=== PATIENT | female | born 1945 | race Caucasian/White ===

== ENCOUNTER 2019-08-08 18:05 | Inpatient (IN) ==
--- NOTE | 2019-08-08 19:42 | DR.EXTPAIN ---
HPI Time seen Time Seen by Provider: 08/08/19 19:41 PCP Primary Care Physician: paul ledesma Complaint/Symptoms Chief Complaint:: pt stated both her legs has started swelling for the last couple of weeks. pt stated she has not seen her family doctor in a long time. patient stated they have been in [place] for 30 years and has been trying to get home. pt stated she seen her doctor about 2 years ago. 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 Past Surgical History Comment: right surgery Family History History of Family Medical Conditions: No Social History Does patient currently use any type of tobacco product: No Have you used tobacco products in the last 12 months: No Type of Tobacco Use: None Does any household member use tobacco: No Alcohol Use: None Do you use any recreational Drugs:: No Lives With: Family Lives Where: Home infectious screening In the last 2 months have you had wt loss of >10#?: NO Have you had fever, night sweats or hemotysis?: No Have you traveled outside the country in the last 6 months?: No Isolation: Standard PE Vital Signs Vitals: Temperature 98.9 F Pulse Rate 88 Respiratory Rate 16 O2 Sat by Pulse Oximetry 99 ROR Labs Reviewed Result Diagrams: 08/08/19 19:45 08/08/19 19:45 Laboratory: 08/08/19 20:30 Leg - Left Gram Stain - Final WBC 9.8 X10^3/uL (3.6-10.0) 08/08/19 19:45 RBC 3.65 X10^6/uL (3.5-5.4) 08/08/19 19:45 Hgb 11.0 g/dL (12.0-16.0) L 08/08/19 19:45 Hct 32.7 % (36.0-47.0) L 08/08/19 19:45 MCV 89.6 fL (80.0-100.0) 08/08/19 19:45 MCH 30.3 pg (27.0-34.0) 08/08/19 19:45 MCHC 33.8 g/dL (33.0-35.0) 08/08/19 19:45 RDW 14.9 % (11.6-16.5) 08/08/19 19:45 Plt Count 368 X10^3/uL (150.0-450.0) 08/08/19 19:45 MPV 6.8 fL (7.4-11.0) L 08/08/19 19:45 Neut % (Auto) 72.2 % (42.0-75.0) 08/08/19 19:45 Lymph % (Auto) 14.5 % (21.0-51.0) L 08/08/19 19:45 [place] % (Auto) 7.4 % (0.0-13.0) 08/08/19 19:45 Eos % (Auto) 5.1 % (0.9-2.9) H 08/08/19 19:45 Baso % (Auto) 0.8 % (0.2-1.0) 08/08/19 19:45 Neut # (Auto) 7.0 x10^3/uL (2.2-4.8) H 08/08/19 19:45 Lymph # (Auto) 1.4 X10^3/uL (1.3-2.9) 08/08/19 19:45 [place] # (Auto) 0.7 x10^3/uL (0.3-0.8) 08/08/19 19:45 Eos # (Auto) 0.5 x10^3/uL (0.0-0.2) H 08/08/19 19:45 Baso # (Auto) 0.1 X10^3/uL (0.0-0.1) 08/08/19 19:45 Absolute Nucleated RBC 0.0 /100WBC 08/08/19 19:45 Sodium 140 mmol/L (136-145) 08/08/19 19:45 Corrected Sodium TNP 08/08/19 19:45 Potassium 3.7 mmol/L (3.5-5.1) 08/08/19 19:45 Chloride 105 mmol/L (98-107) 08/08/19 19:45 Carbon Dioxide 21.2 mmol/L (21-32) 08/08/19 19:45 BUN 20 mg/dL (7-18) H 08/08/19 19:45 Creatinine 1.71 mg/dL (0.55-1.02) H 08/08/19 19:45 Est GFR (MDRD) Af Amer 38 (>60) L 08/08/19 19:45 Est GFR (MDRD) Non-Af 31 (>60) L 08/08/19 19:45 Glucose 104 mg/dL (65-99) H 08/08/19 19:45 Lactic Acid 1.6 mmol/L (0.4-2.0) 08/08/19 20:16 Calcium 8.6 mg/dL (8.5-10.1) 08/08/19 19:45 Corrected Calcium TNP 08/08/19 19:45 Total Bilirubin 0.20 mg/dL (0.2-1.0) 08/08/19 19:45 AST 17 Units/L (15-37) 08/08/19 19:45 ALT 20 Units/L (12-78) 08/08/19 19:45 Alkaline Phosphatase 107 Units/L (46-116) 08/08/19 19:45 C-Reactive Protein 15.10 mg/L (0-3.0) H 08/08/19 19:45 Total Protein 8.4 g/dL (6.4-8.2) H 08/08/19 19:45 Albumin 3.9 g/dL (3.4-5.0) 08/08/19 19:45 Globulin 4.5 g/dL (2.5-4.5) 08/08/19 19:45 Albumin/Globulin Ratio 0.9 Ratio (1.1-2.1) L 08/08/19 19:45 Opioid Opioid Risk Tool Total: 0 Total Score Risk Category: Low Risk Copyright: Aly MISHRA predicting aberrant behaviors Instructions Forms: Excuse From Work
[2019-08-08] MEDS ORDERED: CATAPRES TAB 0.2 MG PO ONE (19:54)
[2019-08-08] MEDS ORDERED: CATAPRES TAB 0.2 MG ONE (19:58)
[2019-08-08 20:02] LABS: BASOPHILS # (AUTO) 0.1 X10^3/uL (0.0-0.1); BASOPHILS % (AUTO) 0.8 % (0.2-1.0); EOSINOPHILS # (AUTO) 0.5 x10^3/uL (0.0-0.2); EOSINOPHILS % (AUTO) 5.1 % (0.9-2.9); HEMATOCRIT 32.7 % (36.0-47.0); LYMPHOCYTES # (AUTO) 1.4 X10^3/uL (1.3-2.9); LYMPHOCYTES % (AUTO) 14.5 % (21.0-51.0); MEAN CORPUSCULAR HEMOGLOBIN 30.3 pg (27.0-34.0); MEAN CORPUSCULAR HGB CONC 33.8 g/dL (33.0-35.0); MEAN CORPUSCULAR VOLUME 89.6 fL (80.0-100.0); MEAN PLATELET VOLUME 6.8 fL (7.4-11.0); MONOCYTES # (AUTO) 0.7 x10^3/uL (0.3-0.8); MONOCYTES % (AUTO) 7.4 % (0.0-13.0); NEUTROPHILS % (AUTO) 72.2 % (42.0-75.0); PLATELET COUNT 368 X10^3/uL (150.0-450.0); RED BLOOD COUNT 3.65 X10^6/uL (3.5-5.4); RED CELL DISTRIBUTION WIDTH 14.9 % (11.6-16.5); WHITE BLOOD COUNT 9.8 X10^3/uL (3.6-10.0)
[2019-08-08] MEDS: NS 1000 ML 1,000 ML IV SCH (20:04)
[2019-08-08 20:13] LABS: ALANINE AMINOTRANSFERASE 20 Units/L (12-78); ALBUMIN 3.9 g/dL (3.4-5.0); ALKALINE PHOSPHATASE 107 Units/L (46-116); ASPARTATE AMINO TRANSFERASE 17 Units/L (15-37); BLOOD UREA NITROGEN 20 mg/dL (7-18); CALCIUM 8.6 mg/dL (8.5-10.1); CARBON DIOXIDE 21.2 mmol/L (21-32); CHLORIDE 105 mmol/L (98-107); CREATININE 1.71 mg/dL (0.55-1.02); SODIUM 140 mmol/L (136-145); TOTAL PROTEIN 8.4 g/dL (6.4-8.2); eGFR NON BLACK RACES 31 (>60)
[2019-08-08] MEDS ORDERED: VANCOMYCIN HCL 1 G in D5W 250 ML IV 250 ML IV ONE (21:45)
[2019-08-08] MEDS ORDERED: VANCOMYCIN HCL ONE (22:14)
[2019-08-08] MEDS ORDERED: NS 250 ML IV 250 ML IV ONE (22:14)
[2019-08-08] MEDS ORDERED: ZOFRAN TAB 4 MG PO PRN (22:57)
[2019-08-08] MEDS ORDERED: PHARMACY CONSULT - VANCOMYCIN XX SCH (23:00)
[2019-08-09 01:20] LABS: BILIRUBIN,URINE NEGATIVE (NEGATIVE); BLOOD/HEMOGLOBIN,URINE 2+ (NEGATIVE); GLUCOSE, URINE NEGATIVE (NEGATIVE); KETONES,URINE NEGATIVE (NEGATIVE); LEUKOCYTE ESTERASE ,URINE 1+ (NEGATIVE); NITRITES,URINE NEGATIVE (NEGATIVE); PROTEIN,URINE 3+ (NEGATIVE); UROBILINOGEN,URINE NORMAL (NORMAL)
[2019-08-09 01:28] LABS: APPEARANCE,URINE CLEAR (CLEAR); COLOR,URINE YELLOW (YELLOW)
[2019-08-09 01:29] LABS: BACTERIA,URINE TRACE /HPF (NEGATIVE); SQUAMOUS EPITHELIAL CELL,UR RARE /HPF (NEGATIVE)
[2019-08-09 04:04] VITALS: BMI 26.3
[2019-08-09 05:21] LABS: BASOPHILS # (AUTO) 0.1 X10^3/uL (0.0-0.1); BASOPHILS % (AUTO) 1.2 % (0.2-1.0); EOSINOPHILS # (AUTO) 0.4 x10^3/uL (0.0-0.2); EOSINOPHILS % (AUTO) 4.9 % (0.9-2.9); HEMATOCRIT 27.6 % (36.0-47.0); HEMOGLOBIN 9.4 g/dL (12.0-16.0); LYMPHOCYTES % (AUTO) 12.7 % (21.0-51.0); MEAN CORPUSCULAR HEMOGLOBIN 30.7 pg (27.0-34.0); MEAN CORPUSCULAR HGB CONC 34.3 g/dL (33.0-35.0); MEAN CORPUSCULAR VOLUME 89.5 fL (80.0-100.0); MEAN PLATELET VOLUME 6.9 fL (7.4-11.0); MONOCYTES # (AUTO) 0.6 x10^3/uL (0.3-0.8); MONOCYTES % (AUTO) 7.8 % (0.0-13.0); NEUTROPHILS # (AUTO) 5.7 x10^3/uL (2.2-4.8); NEUTROPHILS % (AUTO) 73.4 % (42.0-75.0); PLATELET COUNT 313 X10^3/uL (150.0-450.0); RED BLOOD COUNT 3.08 X10^6/uL (3.5-5.4); WHITE BLOOD COUNT 7.8 X10^3/uL (3.6-10.0)
[2019-08-09 05:23] LABS: ALBUMIN 2.8 g/dL (3.4-5.0); CALCIUM 7.5 mg/dL (8.5-10.1); CARBON DIOXIDE 21.6 mmol/L (21-32); COR CA(FOR HYPOALB) 8.5 mg/dL (8.5-10.1); CREATININE 1.54 mg/dL (0.55-1.02); TOTAL PROTEIN 6.3 g/dL (6.4-8.2)
[2019-08-09] MEDS: NS 1000 ML 1,000 ML IV SCH ×4 (06:21→20:41)
--- NOTE | 2019-08-09 12:19 | DR.H&P ---
H&P History & Physical for Day of: H&P Date: 08/09/19 Chief Complaint Chief Complaint: Legs swelling and redness Allergies Allergies Allergy/AdvReac Type Severity Reaction Status Date / Time No Known Drug Allergies Allergy Verified 08/08/19 18:30 History of Present Illness History of Present Illness: Pt presenting after having increased redness and swelling in bilateral lower extremities. She admits to not seeing a physician in a long time. She denies any fevers and reports gradual worsening over the past few months. Past Medical History Past Medical History: Hypertension Past Surgical History Surgical History: Other Family History Family Medical History: Cancer and Hypertension Social History Does patient currently use any type of tobacco product: No Have you used tobacco products in the last 12 months: No Type of Tobacco Use: None Does any household member use tobacco: No Alcohol Use: None Drug Use: None Medications Home Medications: No Known Drug Allergies Allergy (Verified 08/08/19 18:30) CONTINUE taking the following medications aspirin [Aspirin Low Dose] 81 mg PO DAILY 08/09/19 [History] ibuprofen 400 mg PO BID 08/09/19 [History] Labs Result Diagrams: 08/09/19 04:58 08/09/19 04:58 Labs: 08/08/19 20:30 Leg - Left Gram Stain - Final 08/08/19 20:30 Leg - Left Wound Culture - Preliminary Laboratory WBC 7.8 X10^3/uL (3.6-10.0) 08/09/19 04:58 RBC 3.08 X10^6/uL (3.5-5.4) L 08/09/19 04:58 Hgb 9.4 g/dL (12.0-16.0) L 08/09/19 04:58 Hct 27.6 % (36.0-47.0) L 08/09/19 04:58 MCV 89.5 fL (80.0-100.0) 08/09/19 04:58 MCH 30.7 pg (27.0-34.0) 08/09/19 04:58 MCHC 34.3 g/dL (33.0-35.0) 08/09/19 04:58 RDW 15.0 % (11.6-16.5) 08/09/19 04:58 Plt Count 313 X10^3/uL (150.0-450.0) 08/09/19 04:58 MPV 6.9 fL (7.4-11.0) L 08/09/19 04:58 Neut % (Auto) 73.4 % (42.0-75.0) 08/09/19 04:58 Lymph % (Auto) 12.7 % (21.0-51.0) L 08/09/19 04:58 [place] % (Auto) 7.8 % (0.0-13.0) 08/09/19 04:58 Eos % (Auto) 4.9 % (0.9-2.9) H 08/09/19 04:58 Baso % (Auto) 1.2 % (0.2-1.0) H 08/09/19 04:58 Neut # (Auto) 5.7 x10^3/uL (2.2-4.8) H 08/09/19 04:58 Lymph # (Auto) 1.0 X10^3/uL (1.3-2.9) L 08/09/19 04:58 [place] # (Auto) 0.6 x10^3/uL (0.3-0.8) 08/09/19 04:58 Eos # (Auto) 0.4 x10^3/uL (0.0-0.2) H 08/09/19 04:58 Baso # (Auto) 0.1 X10^3/uL (0.0-0.1) 08/09/19 04:58 Absolute Nucleated RBC 0.0 /100WBC 08/09/19 04:58 Sodium 141 mmol/L (136-145) 08/09/19 04:58 Corrected Sodium 142 mmol/L (136-145) 08/09/19 04:58 Potassium 3.4 mmol/L (3.5-5.1) L 08/09/19 04:58 Chloride 108 mmol/L (98-107) H 08/09/19 04:58 Carbon Dioxide 21.6 mmol/L (21-32) 08/09/19 04:58 BUN 18 mg/dL (7-18) 08/09/19 04:58 Creatinine 1.54 mg/dL (0.55-1.02) H 08/09/19 04:58 Est GFR (MDRD) Af Amer 42 (>60) L 08/09/19 04:58 Est GFR (MDRD) Non-Af 35 (>60) L 08/09/19 04:58 Glucose 133 mg/dL (65-99) H 08/09/19 04:58 Lactic Acid 1.6 mmol/L (0.4-2.0) 08/08/19 20:16 Calcium 7.5 mg/dL (8.5-10.1) L 08/09/19 04:58 Corrected Calcium 8.5 mg/dL (8.5-10.1) 08/09/19 04:58 Total Bilirubin 0.20 mg/dL (0.2-1.0) 08/09/19 04:58 AST 12 Units/L (15-37) L 08/09/19 04:58 ALT 16 Units/L (12-78) 08/09/19 04:58 Alkaline Phosphatase 83 Units/L (46-116) 08/09/19 04:58 C-Reactive Protein 15.10 mg/L (0-3.0) H 08/08/19 19:45 Total Protein 6.3 g/dL (6.4-8.2) L 08/09/19 04:58 Albumin 2.8 g/dL (3.4-5.0) L 08/09/19 04:58 Globulin 3.5 g/dL (2.5-4.5) 08/09/19 04:58 Albumin/Globulin Ratio 0.8 Ratio (1.1-2.1) L 08/09/19 04:58 Specimen Type Clean catch urine 08/08/19 23:51 Urine Color Yellow (YELLOW) 08/08/19 23:51 Urine Appearance Clear (CLEAR) 08/08/19 23:51 Urine pH 7.0 (5.0 - 8.0) 08/08/19 23:51 Ur Specific [place] 1.005 (1.000-1.030) 08/08/19 23:51 Urine Protein 3+ (NEGATIVE) 08/08/19 23:51 Urine Glucose (UA) Negative (NEGATIVE) 08/08/19 23:51 Urine Ketones Negative (NEGATIVE) 08/08/19 23:51 Urine Occult Blood 2+ (NEGATIVE) 08/08/19 23:51 Urine Nitrite Negative (NEGATIVE) 08/08/19 23:51 Urine Bilirubin Negative (NEGATIVE) 08/08/19 23:51 Urine Urobilinogen Normal (NORMAL) 08/08/19 23:51 Ur Leukocyte Esterase 1+ (NEGATIVE) 08/08/19 23:51 Urine RBC 3-5 /HPF (0-3) A 08/08/19 23:51 Urine WBC 0-2 /HPF (0-5) 08/08/19 23:51 Ur Squamous Epith Cells Rare /HPF (NEGATIVE) 08/08/19 23:51 Urine Bacteria Trace /HPF (NEGATIVE) 08/08/19 23:51 Ur Culture Indicated? No/not indicated 08/08/19 23:51 Review of Systems Constitutional: No Symptoms Reported Eyes: No Symptoms Reported ENT: No Symptoms Reported Respiratory: No Symptoms Reported Cardiovascular: No Symptoms Reported Gastrointestinal: No Symptoms Reported Genitourinary: No Symptoms Reported Musculoskeletal: Leg Pain Skin: Rash (Bilateral lower extremities ) Neurological: No Symptoms Reported Physical Exam Vital Signs: Temperature 98.2 F Pulse Rate [Right] 84 Pulse Rate 88 Respiratory Rate 20 Blood Pressure [Left Arm] 161/66 Blood Pressure [Right Arm] 182/77 O2 Sat by Pulse Oximetry 96 Oriented: Normal Eyes: Normal Ear: Normal Nose: Normal Throat: Normal Respiratory: Clear Throughout Cardiovascular: Normal Auscultation: Bowel Sounds: Normal Palpation: Normal Tenderness: Normal Skin: Normal and Red (Edema in lower extremities b/l, warm and erythematous ) Psychiatric: Normal Mood Description: Calm and Appropriate Affect: Normal Speech Pattern: Clear and Appropriate Assessment/Plan (1) Cellulitis of both lower extremities: Status: Acute Plan: Abx:IV Vancomycin+Cefepime(08/09) Cultures:prelim Gram - rods Wound care Continue to monitor (2) Normocytic anemia: Status: Acute Plan: Hgb:11>9.4 No active bleeding. Will continue to monitor. Repeat CBC in am. (3) Hypokalemia: Status: Acute Plan: Replacement as per protocol. (4) Chronic kidney disease: Status: Acute Plan: Stable, Cr:1.71>1.54
[2019-08-09] MEDS: MAXIPIME VIAL 1 GRAM IVP SCH (15:09)
[2019-08-09] MEDS: VANCOMYCIN HCL 1 G in D5W 250 ML IV 250 ML IV SCH (20:40)
[2019-08-10] MEDS: NS 1000 ML 1,000 ML IV SCH ×4 (02:13→21:07)
[2019-08-10 05:26] LABS: CARBON DIOXIDE 17.6 mmol/L (21-32); CREATININE 1.16 mg/dL (0.55-1.02)
[2019-08-10 05:52] LABS: BASOPHILS % (AUTO) 0.5 % (0.2-1.0); EOSINOPHILS # (AUTO) 0.3 x10^3/uL (0.0-0.2); EOSINOPHILS % (AUTO) 4.3 % (0.9-2.9); HEMATOCRIT 23.1 % (36.0-47.0); LYMPHOCYTES # (AUTO) 0.9 X10^3/uL (1.3-2.9); LYMPHOCYTES % (AUTO) 11.7 % (21.0-51.0); MEAN CORPUSCULAR HEMOGLOBIN 30.8 pg (27.0-34.0); MEAN CORPUSCULAR HGB CONC 34.6 g/dL (33.0-35.0); MEAN CORPUSCULAR VOLUME 88.9 fL (80.0-100.0); MEAN PLATELET VOLUME 6.8 fL (7.4-11.0); MONOCYTES # (AUTO) 0.5 x10^3/uL (0.3-0.8); MONOCYTES % (AUTO) 6.5 % (0.0-13.0); NEUTROPHILS # (AUTO) 5.9 x10^3/uL (2.2-4.8); PLATELET COUNT 240 X10^3/uL (150.0-450.0); RED CELL DISTRIBUTION WIDTH 14.9 % (11.6-16.5); WHITE BLOOD COUNT 7.6 X10^3/uL (3.6-10.0)
[2019-08-10 06:00] LABS: CALCIUM 5.7 mg/dL (8.5-10.1)
[2019-08-10] MEDS ORDERED: POTASSIUM CHLORIDE LIQ 20 MEQ UDC PO PRN (06:24)
[2019-08-10] MEDS ORDERED: K-DUR TAB 20 MEQ PO PRN (06:24)
[2019-08-10] MEDS ORDERED: MICRO K EXTEN CAP 10 MEQ PO PRN (06:24)
[2019-08-10] MEDS ORDERED: K-RIDER 10 MEQ/NS 100 ML 10 MEQ/100 ML BAG IV PRN (06:24)
[2019-08-10] MEDS ORDERED: POTASSIUM CHL 40 MEQ/NS 0.45% 500 ML IV PRN (06:24)
[2019-08-10] MEDS ORDERED: KLOR-CON PO PRN (06:24)
[2019-08-10] MEDS ORDERED: POTASSIUM CHL 60 MEQ/NS 0.45% 500 ML IV PRN (06:24)
[2019-08-10] MEDS: MAXIPIME VIAL 1 GRAM IVP SCH (09:13)
[2019-08-10] MEDS: ZESTRIL TAB 5 MG PO SCH (09:13)
--- NOTE | 2019-08-10 13:21 | PCM.PROG ---
Progress Note Progress Note for Day of Date of Exam: 08/10/19 Subjective Subjective: Patient seen this AM, reports leg itching. Potassium and Mag low. Wound cultures pending. Past Medical Family Social History Past Med/Fam/Surg Hx: No changes since H&P Allergies: Allergies No Known Drug Allergies Allergy (Verified 08/08/19 18:30) Review of Systems ROS: No change since H&P Vital Signs and I&O's Vital Signs: Temperature 98.9 F Pulse Rate [Right] 84 Pulse Rate 88 Respiratory Rate 18 Blood Pressure [Left Arm] 166/69 Blood Pressure [Right Arm] 182/77 O2 Sat by Pulse Oximetry 96 Intake and Output: Intake & Output 08/07/19 08/08/19 08/09/19 08/10/19 23:59 23:59 23:59 23:59 Intake Total 3420 / 3420 240 / 240 Output Total 3975 / 3975 1250 / 1250 Balance -555 / -555 -1010 / -1010 Physical Exam Oriented: Normal Eyes: Normal Ear: Normal Nose: Normal Throat: Normal Cardiovascular: Normal : Normal Auscultation: Bowel Sounds: Normal Tenderness: Normal Skin: Red (Edema in lower extremities b/l, warm and erythematous ) Musculoskeletal: Normal Psychiatric: Normal Mood Description: Calm and Appropriate Affect: Normal Speech Pattern: Clear and Appropriate Laboratory and Diagnostics Result Diagrams: 08/10/19 04:32 08/10/19 10:10 Labs: 08/08/19 20:33 Blood Blood Culture - Preliminary 08/08/19 20:16 Blood Blood Culture - Preliminary 08/08/19 20:30 Leg - Left Gram Stain - Final 08/08/19 20:30 Leg - Left Wound Culture - Preliminary Laboratory WBC 7.6 X10^3/uL (3.6-10.0) 08/10/19 04:32 RBC 2.60 X10^6/uL (3.5-5.4) L 08/10/19 04:32 Hgb 8.0 g/dL (12.0-16.0) L 08/10/19 04:32 Hct 23.1 % (36.0-47.0) L 08/10/19 04:32 MCV 88.9 fL (80.0-100.0) 08/10/19 04:32 MCH 30.8 pg (27.0-34.0) 08/10/19 04:32 MCHC 34.6 g/dL (33.0-35.0) 08/10/19 04:32 RDW 14.9 % (11.6-16.5) 08/10/19 04:32 Plt Count 240 X10^3/uL (150.0-450.0) 08/10/19 04:32 MPV 6.8 fL (7.4-11.0) L 08/10/19 04:32 Neut % (Auto) 77.0 % (42.0-75.0) H 08/10/19 04:32 Lymph % (Auto) 11.7 % (21.0-51.0) L 08/10/19 04:32 [place] % (Auto) 6.5 % (0.0-13.0) 08/10/19 04:32 Eos % (Auto) 4.3 % (0.9-2.9) H 08/10/19 04:32 Baso % (Auto) 0.5 % (0.2-1.0) 08/10/19 04:32 Neut # (Auto) 5.9 x10^3/uL (2.2-4.8) H 08/10/19 04:32 Lymph # (Auto) 0.9 X10^3/uL (1.3-2.9) L 08/10/19 04:32 [place] # (Auto) 0.5 x10^3/uL (0.3-0.8) 08/10/19 04:32 Eos # (Auto) 0.3 x10^3/uL (0.0-0.2) H 08/10/19 04:32 Baso # (Auto) 0.0 X10^3/uL (0.0-0.1) 08/10/19 04:32 Absolute Nucleated RBC 0.0 /100WBC 08/10/19 04:32 Sodium 144 mmol/L (136-145) 08/10/19 04:32 Corrected Sodium 144 mmol/L (136-145) 08/10/19 04:32 Potassium 4.6 mmol/L (3.5-5.1) 08/10/19 10:10 Chloride 113 mmol/L (98-107) H 08/10/19 04:32 Carbon Dioxide 17.6 mmol/L (21-32) L 08/10/19 04:32 BUN 13 mg/dL (7-18) 08/10/19 04:32 Creatinine 1.16 mg/dL (0.55-1.02) H 08/10/19 04:32 Est GFR (MDRD) Af Amer 59 (>60) 08/10/19 04:32 Est GFR (MDRD) Non-Af 49 (>60) L 08/10/19 04:32 Glucose 118 mg/dL (65-99) H 08/10/19 04:32 Lactic Acid 1.6 mmol/L (0.4-2.0) 08/08/19 20:16 Calcium 5.7 mg/dL (8.5-10.1) L* 08/10/19 04:32 Corrected Calcium 8.5 mg/dL (8.5-10.1) 08/09/19 04:58 Magnesium 1.0 mg/dL (1.7-2.9) L 08/10/19 04:32 Total Bilirubin 0.20 mg/dL (0.2-1.0) 08/09/19 04:58 AST 12 Units/L (15-37) L 08/09/19 04:58 ALT 16 Units/L (12-78) 08/09/19 04:58 Alkaline Phosphatase 83 Units/L (46-116) 08/09/19 04:58 C-Reactive Protein 15.10 mg/L (0-3.0) H 08/08/19 19:45 Total Protein 6.3 g/dL (6.4-8.2) L 08/09/19 04:58 Albumin 2.8 g/dL (3.4-5.0) L 08/09/19 04:58 Globulin 3.5 g/dL (2.5-4.5) 08/09/19 04:58 Albumin/Globulin Ratio 0.8 Ratio (1.1-2.1) L 08/09/19 04:58 Specimen Type Clean catch urine 08/08/19 23:51 Urine Color Yellow (YELLOW) 08/08/19 23:51 Urine Appearance Clear (CLEAR) 08/08/19 23:51 Urine pH 7.0 (5.0 - 8.0) 08/08/19 23:51 Ur Specific [place] 1.005 (1.000-1.030) 08/08/19 23:51 Urine Protein 3+ (NEGATIVE) 08/08/19 23:51 Urine Glucose (UA) Negative (NEGATIVE) 08/08/19 23:51 Urine Ketones Negative (NEGATIVE) 08/08/19 23:51 Urine Occult Blood 2+ (NEGATIVE) 08/08/19 23:51 Urine Nitrite Negative (NEGATIVE) 08/08/19 23:51 Urine Bilirubin Negative (NEGATIVE) 08/08/19 23:51 Urine Urobilinogen Normal (NORMAL) 08/08/19 23:51 Ur Leukocyte Esterase 1+ (NEGATIVE) 08/08/19 23:51 Urine RBC 3-5 /HPF (0-3) A 08/08/19 23:51 Urine WBC 0-2 /HPF (0-5) 08/08/19 23:51 Ur Squamous Epith Cells Rare /HPF (NEGATIVE) 08/08/19 23:51 Urine Bacteria Trace /HPF (NEGATIVE) 08/08/19 23:51 Ur Culture Indicated? No/not indicated 08/08/19 23:51 Plan (1) Cellulitis of both lower extremities: Status: Acute Plan: Abx:IV Vancomycin+Cefepime(08/09) Cultures:prelim Gram - rods Wound care Continue to monitor, will zeyad the area for better follow up in the AM (2) Normocytic anemia: Status: Acute Plan: Hgb:8.0, trending down No active bleeding. Will continue to monitor. Repeat CBC in am. (3) Hypokalemia: Status: Acute Plan: Replacement as per protocol. (4) Hypomagnesemia: Status: Acute Plan: replacement as per protocol, check labs in the AM (5) Chronic kidney disease: Status: Acute Plan: Stable, Cr:1.71>1.54
[2019-08-10] MEDS: MAGNESIUM SULFATE 1 GRAM/100 mL PREMIX 1 GM/100 ML BAG IV PRN ×4 (16:35→22:51)
[2019-08-10] MEDS: VANCOMYCIN HCL 1 G in D5W 250 ML IV 250 ML IV SCH (21:07)
[2019-08-11] MEDS: MAGNESIUM SULFATE 1 GRAM/100 mL PREMIX 1 GM/100 ML BAG IV PRN (00:54)
[2019-08-11] MEDS: MORPHINE SULFATE INJ 2 MG INJ IVP PRN ×2 (00:55→15:14)
[2019-08-11 05:39] LABS: BASOPHILS % (AUTO) 0.4 % (0.2-1.0); EOSINOPHILS # (AUTO) 0.6 x10^3/uL (0.0-0.2); EOSINOPHILS % (AUTO) 5.3 % (0.9-2.9); HEMATOCRIT 27.9 % (36.0-47.0); HEMOGLOBIN 9.6 g/dL (12.0-16.0); LYMPHOCYTES % (AUTO) 9.3 % (21.0-51.0); MEAN CORPUSCULAR HEMOGLOBIN 30.7 pg (27.0-34.0); MEAN CORPUSCULAR HGB CONC 34.3 g/dL (33.0-35.0); MEAN CORPUSCULAR VOLUME 89.6 fL (80.0-100.0); MONOCYTES # (AUTO) 0.8 x10^3/uL (0.3-0.8); MONOCYTES % (AUTO) 7.6 % (0.0-13.0); NEUTROPHILS % (AUTO) 77.4 % (42.0-75.0); PLATELET COUNT 290 X10^3/uL (150.0-450.0); RED BLOOD COUNT 3.11 X10^6/uL (3.5-5.4); RED CELL DISTRIBUTION WIDTH 14.7 % (11.6-16.5); WHITE BLOOD COUNT 10.4 X10^3/uL (3.6-10.0)
[2019-08-11 05:45] LABS: CALCIUM 7.6 mg/dL (8.5-10.1); CARBON DIOXIDE 20.2 mmol/L (21-32); CREATININE 1.36 mg/dL (0.55-1.02); MAGNESIUM 2.8 mg/dL (1.7-2.9)
[2019-08-11] MEDS: NS 1000 ML 1,000 ML IV SCH ×4 (08:29→21:54)
[2019-08-11] MEDS: ZESTRIL TAB 5 MG PO SCH (08:30)
[2019-08-11] MEDS: MAXIPIME VIAL 1 GRAM IVP SCH (08:31)
--- NOTE | 2019-08-11 09:06 | PCM.PROG ---
Progress Note Progress Note for Day of Date of Exam: 08/11/19 Subjective Subjective: Patient seen this AM, no acute events. Patient's legs look about the same, still with redness and tenderness. Wound cultures pending. Past Medical Family Social History Past Med/Fam/Surg Hx: No changes since H&P Allergies: Allergies No Known Drug Allergies Allergy (Verified 08/08/19 18:30) Review of Systems ROS: No change since H&P Vital Signs and I&O's Vital Signs: Temperature 98.9 F Pulse Rate [Right] 82 Pulse Rate 88 Respiratory Rate 20 Blood Pressure [Left Arm] 165/71 Blood Pressure [Right Arm] 182/77 O2 Sat by Pulse Oximetry 97 Intake and Output: Intake & Output 08/08/19 08/09/19 08/10/19 08/11/19 23:59 23:59 23:59 23:59 Intake Total 3420 / 3420 1180 / 1180 1025 / 1025 Output Total 3975 / 3975 3325 / 3325 750 / 750 Balance -555 / -555 -2145 / -2145 275 / 275 Physical Exam Oriented: Normal Eyes: Normal Ear: Normal Nose: Normal Throat: Normal Respiratory: Normal Cardiovascular: Normal Auscultation: Bowel Sounds: Normal Tenderness: Normal Skin: Red (Edema in lower extremities b/l, warm and erythematous, sloughing ) Musculoskeletal: Normal Psychiatric: Normal Mood Description: Calm and Appropriate Affect: Normal Speech Pattern: Clear and Appropriate Laboratory and Diagnostics Result Diagrams: 08/11/19 05:08 08/11/19 05:08 Labs: 08/08/19 20:33 Blood Blood Culture - Preliminary 08/08/19 20:16 Blood Blood Culture - Preliminary 08/08/19 20:30 Leg - Left Gram Stain - Final 08/08/19 20:30 Leg - Left Wound Culture - Preliminary Laboratory WBC 10.4 X10^3/uL (3.6-10.0) H 08/11/19 05:08 RBC 3.11 X10^6/uL (3.5-5.4) L 08/11/19 05:08 Hgb 9.6 g/dL (12.0-16.0) L 08/11/19 05:08 Hct 27.9 % (36.0-47.0) L 08/11/19 05:08 MCV 89.6 fL (80.0-100.0) 08/11/19 05:08 MCH 30.7 pg (27.0-34.0) 08/11/19 05:08 MCHC 34.3 g/dL (33.0-35.0) 08/11/19 05:08 RDW 14.7 % (11.6-16.5) 08/11/19 05:08 Plt Count 290 X10^3/uL (150.0-450.0) 08/11/19 05:08 MPV 7.0 fL (7.4-11.0) L 08/11/19 05:08 Neut % (Auto) 77.4 % (42.0-75.0) H 08/11/19 05:08 Lymph % (Auto) 9.3 % (21.0-51.0) L 08/11/19 05:08 [place] % (Auto) 7.6 % (0.0-13.0) 08/11/19 05:08 Eos % (Auto) 5.3 % (0.9-2.9) H 08/11/19 05:08 Baso % (Auto) 0.4 % (0.2-1.0) 08/11/19 05:08 Neut # (Auto) 8.0 x10^3/uL (2.2-4.8) H 08/11/19 05:08 Lymph # (Auto) 1.0 X10^3/uL (1.3-2.9) L 08/11/19 05:08 [place] # (Auto) 0.8 x10^3/uL (0.3-0.8) 08/11/19 05:08 Eos # (Auto) 0.6 x10^3/uL (0.0-0.2) H 08/11/19 05:08 Baso # (Auto) 0.0 X10^3/uL (0.0-0.1) 08/11/19 05:08 Absolute Nucleated RBC 0.0 /100WBC 08/11/19 05:08 Sodium 137 mmol/L (136-145) 08/11/19 05:08 Corrected Sodium 137 mmol/L (136-145) 08/11/19 05:08 Potassium 3.9 mmol/L (3.5-5.1) 08/11/19 05:08 Chloride 107 mmol/L (98-107) 08/11/19 05:08 Carbon Dioxide 20.2 mmol/L (21-32) L 08/11/19 05:08 BUN 13 mg/dL (7-18) 08/11/19 05:08 Creatinine 1.36 mg/dL (0.55-1.02) H 08/11/19 05:08 Est GFR (MDRD) Af Amer 49 (>60) L 08/11/19 05:08 Est GFR (MDRD) Non-Af 40 (>60) L 08/11/19 05:08 Glucose 120 mg/dL (65-99) H 08/11/19 05:08 Lactic Acid 1.6 mmol/L (0.4-2.0) 08/08/19 20:16 Calcium 7.6 mg/dL (8.5-10.1) L 08/11/19 05:08 Corrected Calcium 8.5 mg/dL (8.5-10.1) 08/09/19 04:58 Magnesium 2.8 mg/dL (1.7-2.9) 08/11/19 05:08 Total Bilirubin 0.20 mg/dL (0.2-1.0) 08/09/19 04:58 AST 12 Units/L (15-37) L 08/09/19 04:58 ALT 16 Units/L (12-78) 08/09/19 04:58 Alkaline Phosphatase 83 Units/L (46-116) 08/09/19 04:58 C-Reactive Protein 15.10 mg/L (0-3.0) H 08/08/19 19:45 Total Protein 6.3 g/dL (6.4-8.2) L 08/09/19 04:58 Albumin 2.8 g/dL (3.4-5.0) L 08/09/19 04:58 Globulin 3.5 g/dL (2.5-4.5) 08/09/19 04:58 Albumin/Globulin Ratio 0.8 Ratio (1.1-2.1) L 08/09/19 04:58 Specimen Type Clean catch urine 08/08/19 23:51 Urine Color Yellow (YELLOW) 08/08/19 23:51 Urine Appearance Clear (CLEAR) 08/08/19 23:51 Urine pH 7.0 (5.0 - 8.0) 08/08/19 23:51 Ur Specific [place] 1.005 (1.000-1.030) 08/08/19 23:51 Urine Protein 3+ (NEGATIVE) 08/08/19 23:51 Urine Glucose (UA) Negative (NEGATIVE) 08/08/19 23:51 Urine Ketones Negative (NEGATIVE) 08/08/19 23:51 Urine Occult Blood 2+ (NEGATIVE) 08/08/19 23:51 Urine Nitrite Negative (NEGATIVE) 08/08/19 23:51 Urine Bilirubin Negative (NEGATIVE) 08/08/19 23:51 Urine Urobilinogen Normal (NORMAL) 08/08/19 23:51 Ur Leukocyte Esterase 1+ (NEGATIVE) 08/08/19 23:51 Urine RBC 3-5 /HPF (0-3) A 08/08/19 23:51 Urine WBC 0-2 /HPF (0-5) 08/08/19 23:51 Ur Squamous Epith Cells Rare /HPF (NEGATIVE) 08/08/19 23:51 Urine Bacteria Trace /HPF (NEGATIVE) 08/08/19 23:51 Ur Culture Indicated? No/not indicated 08/08/19 23:51 ST: Inf Plan (1) Cellulitis of both lower extremities: Status: Acute Plan: Abx:IV Vancomycin+Cefepime, will DC Vancomycin today Cultures:prelim Gram - rods Will consult Surgery to evaluate further for possible debridement of the dry patches on the anterior legs Wound care Continue to monitor (2) Normocytic anemia: Status: Acute Plan: Hgb: 9.6 No active bleeding. Will continue to monitor (3) Hypokalemia: Status: Acute Plan: Replacement as per protocol. (4) Hypomagnesemia: Status: Acute Plan: replacement as per protocol, check labs in the AM (5) Chronic kidney disease: Status: Acute Plan: Stable, Cr:1.71>1.54
[2019-08-11] MEDS ORDERED: PHARMACY COMMENT IV SCH (20:45)
[2019-08-12] MEDS: NS 1000 ML 1,000 ML IV SCH ×5 (04:17→21:17)
[2019-08-12 05:40] LABS: BASOPHILS % (AUTO) 0.5 % (0.2-1.0); EOSINOPHILS # (AUTO) 0.6 x10^3/uL (0.0-0.2); HEMOGLOBIN 8.9 g/dL (12.0-16.0); LYMPHOCYTES % (AUTO) 10.5 % (21.0-51.0); MEAN CORPUSCULAR HEMOGLOBIN 30.8 pg (27.0-34.0); MEAN CORPUSCULAR HGB CONC 34.2 g/dL (33.0-35.0); MEAN CORPUSCULAR VOLUME 90.1 fL (80.0-100.0); MEAN PLATELET VOLUME 7.1 fL (7.4-11.0); MONOCYTES # (AUTO) 0.7 x10^3/uL (0.3-0.8); MONOCYTES % (AUTO) 7.6 % (0.0-13.0); NEUTROPHILS % (AUTO) 75.4 % (42.0-75.0); PLATELET COUNT 266 X10^3/uL (150.0-450.0); RED BLOOD COUNT 2.88 X10^6/uL (3.5-5.4); RED CELL DISTRIBUTION WIDTH 14.9 % (11.6-16.5); WHITE BLOOD COUNT 9.3 X10^3/uL (3.6-10.0)
[2019-08-12 05:47] LABS: CALCIUM 7.4 mg/dL (8.5-10.1); CARBON DIOXIDE 19.4 mmol/L (21-32); CREATININE 1.3 mg/dL (0.55-1.02); MAGNESIUM 2.1 mg/dL (1.7-2.9)
[2019-08-12] MEDS: MORPHINE SULFATE INJ 2 MG INJ IVP PRN ×2 (08:20→21:27)
[2019-08-12] MEDS: ZESTRIL TAB 5 MG PO SCH (08:21)
[2019-08-12] MEDS: MAXIPIME VIAL 1 GRAM IVP SCH (08:21)
[2019-08-12] MEDS: LOVENOX INJ 40 MG SYR SC SCH (08:21)
--- NOTE | 2019-08-12 08:21 | PCM.PROG ---
Progress Note Progress Note for Day of Date of Exam: 08/12/19 Subjective Subjective: Patient seen this AM. Doing the same, leg erythema remains similar to yesterday, has not progressed more. Denies fever or chills, no N/V/D. Past Medical Family Social History Past Med/Fam/Surg Hx: No changes since H&P Allergies: Allergies No Known Drug Allergies Allergy (Verified 08/08/19 18:30) Review of Systems ROS: No change since H&P Vital Signs and I&O's Vital Signs: Temperature 98.8 F Pulse Rate [Right] 92 Pulse Rate 88 Respiratory Rate 20 Blood Pressure [Left Arm] 175/74 Blood Pressure [Right Arm] 190/77 O2 Sat by Pulse Oximetry 96 Intake and Output: Intake & Output 08/09/19 08/10/19 08/11/19 08/12/19 23:59 23:59 23:59 23:59 Intake Total 3420 / 3420 1180 / 1180 4097 / 4097 1300 / 1300 Output Total 3975 / 3975 3325 / 3325 3150 / 3150 825 / 825 Balance -555 / -555 -2145 / -2145 947 / 947 475 / 475 Physical Exam Oriented: Normal Eyes: Normal Ear: Normal Nose: Normal Throat: Normal Respiratory: Normal Cardiovascular: Normal Auscultation: Bowel Sounds: Normal Tenderness: Normal Skin: Red (Edema in lower extremities b/l, warm and erythematous, sloughing , chronic venous stasis ) Musculoskeletal: Normal Psychiatric: Normal Mood Description: Calm and Appropriate Affect: Normal Speech Pattern: Clear and Appropriate Laboratory and Diagnostics Result Diagrams: 08/12/19 05:17 08/12/19 05:17 Labs: 08/08/19 20:30 Leg - Left Gram Stain - Final 08/08/19 20:30 Leg - Left Wound Culture - Final Proteus Mirabilis 08/08/19 20:33 Blood Blood Culture - Preliminary 08/08/19 20:16 Blood Blood Culture - Preliminary Laboratory WBC 9.3 X10^3/uL (3.6-10.0) 08/12/19 05:17 RBC 2.88 X10^6/uL (3.5-5.4) L 08/12/19 05:17 Hgb 8.9 g/dL (12.0-16.0) L 08/12/19 05:17 Hct 26.0 % (36.0-47.0) L 08/12/19 05:17 MCV 90.1 fL (80.0-100.0) 08/12/19 05:17 MCH 30.8 pg (27.0-34.0) 08/12/19 05:17 MCHC 34.2 g/dL (33.0-35.0) 08/12/19 05:17 RDW 14.9 % (11.6-16.5) 08/12/19 05:17 Plt Count 266 X10^3/uL (150.0-450.0) 08/12/19 05:17 MPV 7.1 fL (7.4-11.0) L 08/12/19 05:17 Neut % (Auto) 75.4 % (42.0-75.0) H 08/12/19 05:17 Lymph % (Auto) 10.5 % (21.0-51.0) L 08/12/19 05:17 [place] % (Auto) 7.6 % (0.0-13.0) 08/12/19 05:17 Eos % (Auto) 6.0 % (0.9-2.9) H 08/12/19 05:17 Baso % (Auto) 0.5 % (0.2-1.0) 08/12/19 05:17 Neut # (Auto) 7.0 x10^3/uL (2.2-4.8) H 08/12/19 05:17 Lymph # (Auto) 1.0 X10^3/uL (1.3-2.9) L 08/12/19 05:17 [place] # (Auto) 0.7 x10^3/uL (0.3-0.8) 08/12/19 05:17 Eos # (Auto) 0.6 x10^3/uL (0.0-0.2) H 08/12/19 05:17 Baso # (Auto) 0.0 X10^3/uL (0.0-0.1) 08/12/19 05:17 Absolute Nucleated RBC 0.0 /100WBC 08/12/19 05:17 Sodium 138 mmol/L (136-145) 08/12/19 05:17 Corrected Sodium 139 mmol/L (136-145) 08/12/19 05:17 Potassium 3.9 mmol/L (3.5-5.1) 08/12/19 05:17 Chloride 108 mmol/L (98-107) H 08/12/19 05:17 Carbon Dioxide 19.4 mmol/L (21-32) L 08/12/19 05:17 BUN 12 mg/dL (7-18) 08/12/19 05:17 Creatinine 1.30 mg/dL (0.55-1.02) H 08/12/19 05:17 Est GFR (MDRD) Af Amer 51 (>60) L 08/12/19 05:17 Est GFR (MDRD) Non-Af 43 (>60) L 08/12/19 05:17 Glucose 148 mg/dL (65-99) H 08/12/19 05:17 Lactic Acid 1.6 mmol/L (0.4-2.0) 08/08/19 20:16 Calcium 7.4 mg/dL (8.5-10.1) L 08/12/19 05:17 Corrected Calcium 8.5 mg/dL (8.5-10.1) 08/09/19 04:58 Magnesium 2.1 mg/dL (1.7-2.9) 08/12/19 05:17 Total Bilirubin 0.20 mg/dL (0.2-1.0) 08/09/19 04:58 AST 12 Units/L (15-37) L 08/09/19 04:58 ALT 16 Units/L (12-78) 08/09/19 04:58 Alkaline Phosphatase 83 Units/L (46-116) 08/09/19 04:58 C-Reactive Protein 15.10 mg/L (0-3.0) H 08/08/19 19:45 Total Protein 6.3 g/dL (6.4-8.2) L 08/09/19 04:58 Albumin 2.8 g/dL (3.4-5.0) L 08/09/19 04:58 Globulin 3.5 g/dL (2.5-4.5) 08/09/19 04:58 Albumin/Globulin Ratio 0.8 Ratio (1.1-2.1) L 08/09/19 04:58 Specimen Type Clean catch urine 08/08/19 23:51 Urine Color Yellow (YELLOW) 08/08/19 23:51 Urine Appearance Clear (CLEAR) 08/08/19 23:51 Urine pH 7.0 (5.0 - 8.0) 08/08/19 23:51 Ur Specific [place] 1.005 (1.000-1.030) 08/08/19 23:51 Urine Protein 3+ (NEGATIVE) 08/08/19 23:51 Urine Glucose (UA) Negative (NEGATIVE) 08/08/19 23:51 Urine Ketones Negative (NEGATIVE) 08/08/19 23:51 Urine Occult Blood 2+ (NEGATIVE) 08/08/19 23:51 Urine Nitrite Negative (NEGATIVE) 08/08/19 23:51 Urine Bilirubin Negative (NEGATIVE) 08/08/19 23:51 Urine Urobilinogen Normal (NORMAL) 08/08/19 23:51 Ur Leukocyte Esterase 1+ (NEGATIVE) 08/08/19 23:51 Urine RBC 3-5 /HPF (0-3) A 08/08/19 23:51 Urine WBC 0-2 /HPF (0-5) 08/08/19 23:51 Ur Squamous Epith Cells Rare /HPF (NEGATIVE) 08/08/19 23:51 Urine Bacteria Trace /HPF (NEGATIVE) 08/08/19 23:51 Ur Culture Indicated? No/not indicated 08/08/19 23:51 Plan (1) Cellulitis of both lower extremities: Status: Acute Plan: Abx:Cefepime Cultures:prelim Gram - rods Seen by surgery: likely worsening chronic venous stasis, recommend proper wound care/cleaning of the area. Wound care Continue to monitor (2) Hyperglycemia: Status: Acute Plan: elevated BGs, A1C 6.1 (3) Accelerated hypertension: Status: Acute Plan: on lisinopril 5mg, slight SATNAM, will add amlodipine 5mg for better control (4) Normocytic anemia: Status: Acute Plan: Hgb: 8.9 No active bleeding. Will continue to monitor (5) Hypokalemia: Status: Acute Plan: Replacement as per protocol. (6) Hypomagnesemia: Status: Acute Plan: replacement as per protocol, check labs in the AM (7) Chronic kidney disease: Status: Acute Plan: Stable, Cr 1.30
[2019-08-12] MEDS: NORVASC TAB 5 MG PO SCH (09:50)
[2019-08-12] MEDS ORDERED: SILVADENE ONE (10:00)
[2019-08-12] MEDS: SILVADENE TOP SCH ×2 (10:01→21:18)
--- NOTE | 2019-08-12 19:32 | VAS ---
History: Leg pain and swelling Exam: Bilateral lower extremity venous Doppler ultrasound Comparison: None Technique: Multiple grayscale and color flow Doppler images of the lower extremities were obtained. Findings: There is normal compression and augmentation of the common femoral, superficial femoral, greater saphenous, and popliteal veins. No thrombus is seen there is phasic change with augmentation throughout. The tibial veins were not visualized. IMPRESSION: No DVT seen in the visualized deep venous system of both lower extremities. Reported By:
[2019-08-13] MEDS: NS 1000 ML 1,000 ML IV SCH ×2 (03:39→12:18)
[2019-08-13 05:30] LABS: CALCIUM 7.7 mg/dL (8.5-10.1); CARBON DIOXIDE 20.5 mmol/L (21-32); CREATININE 1.3 mg/dL (0.55-1.02); MAGNESIUM 1.8 mg/dL (1.7-2.9)
--- NOTE | 2019-08-13 08:05 | PCM.PROG ---
Progress Note Progress Note for Day of Date of Exam: 08/13/19 Subjective Subjective: Patient seen this AM. She is doing well, legs look slightly better. Denies fever or chills. Wound Cx growing Proteus. Past Medical Family Social History Past Med/Fam/Surg Hx: No changes since H&P Allergies: Allergies No Known Drug Allergies Allergy (Verified 08/08/19 18:30) Review of Systems ROS: No change since H&P Vital Signs and I&O's Vital Signs: Temperature 99.2 F Pulse Rate [Right] 90 Pulse Rate 88 Respiratory Rate 18 Blood Pressure [Left Arm] 146/64 Blood Pressure [Right Arm] 129/59 O2 Sat by Pulse Oximetry 97 Intake and Output: Intake & Output 08/10/19 08/11/19 08/12/19 08/13/19 23:59 23:59 23:59 23:59 Intake Total 1180 / 1180 4097 / 4097 4410 / 4410 1150 / 1150 Output Total 3325 / 3325 3150 / 3150 825 / 825 Balance -2145 / -2145 947 / 947 3585 / 3585 1150 / 1150 Physical Exam Oriented: Normal Eyes: Normal Ear: Normal Nose: Normal Throat: Normal Respiratory: Normal Cardiovascular: Normal : Normal Auscultation: Bowel Sounds: Normal Tenderness: Normal Skin: Red (Edema in lower extremities b/l, warm and erythematous, sloughing , chronic venous stasis ) Musculoskeletal: Normal Psychiatric: Normal Mood Description: Calm and Appropriate Affect: Normal Speech Pattern: Clear and Appropriate Laboratory and Diagnostics Result Diagrams: 08/12/19 05:17 08/13/19 04:45 Labs: 08/08/19 20:30 Leg - Left Gram Stain - Final 08/08/19 20:30 Leg - Left Wound Culture - Final Proteus Mirabilis 08/08/19 20:33 Blood Blood Culture - Preliminary 08/08/19 20:16 Blood Blood Culture - Preliminary Laboratory WBC 9.3 X10^3/uL (3.6-10.0) 08/12/19 05:17 RBC 2.88 X10^6/uL (3.5-5.4) L 08/12/19 05:17 Hgb 8.9 g/dL (12.0-16.0) L 08/12/19 05:17 Hct 26.0 % (36.0-47.0) L 08/12/19 05:17 MCV 90.1 fL (80.0-100.0) 08/12/19 05:17 MCH 30.8 pg (27.0-34.0) 08/12/19 05:17 MCHC 34.2 g/dL (33.0-35.0) 08/12/19 05:17 RDW 14.9 % (11.6-16.5) 08/12/19 05:17 Plt Count 266 X10^3/uL (150.0-450.0) 08/12/19 05:17 MPV 7.1 fL (7.4-11.0) L 08/12/19 05:17 Neut % (Auto) 75.4 % (42.0-75.0) H 08/12/19 05:17 Lymph % (Auto) 10.5 % (21.0-51.0) L 08/12/19 05:17 [place] % (Auto) 7.6 % (0.0-13.0) 08/12/19 05:17 Eos % (Auto) 6.0 % (0.9-2.9) H 08/12/19 05:17 Baso % (Auto) 0.5 % (0.2-1.0) 08/12/19 05:17 Neut # (Auto) 7.0 x10^3/uL (2.2-4.8) H 08/12/19 05:17 Lymph # (Auto) 1.0 X10^3/uL (1.3-2.9) L 08/12/19 05:17 [place] # (Auto) 0.7 x10^3/uL (0.3-0.8) 08/12/19 05:17 Eos # (Auto) 0.6 x10^3/uL (0.0-0.2) H 08/12/19 05:17 Baso # (Auto) 0.0 X10^3/uL (0.0-0.1) 08/12/19 05:17 Absolute Nucleated RBC 0.0 /100WBC 08/12/19 05:17 Sodium 137 mmol/L (136-145) 08/13/19 04:45 Corrected Sodium 138 mmol/L (136-145) 08/13/19 04:45 Potassium 3.9 mmol/L (3.5-5.1) 08/13/19 04:45 Chloride 107 mmol/L (98-107) 08/13/19 04:45 Carbon Dioxide 20.5 mmol/L (21-32) L 08/13/19 04:45 BUN 13 mg/dL (7-18) 08/13/19 04:45 Creatinine 1.30 mg/dL (0.55-1.02) H 08/13/19 04:45 Est GFR (MDRD) Af Amer 51 (>60) L 08/13/19 04:45 Est GFR (MDRD) Non-Af 43 (>60) L 08/13/19 04:45 Glucose 128 mg/dL (65-99) H 08/13/19 04:45 Hemoglobin A1c 6.2 % 08/12/19 05:17 Lactic Acid 1.6 mmol/L (0.4-2.0) 08/08/19 20:16 Calcium 7.7 mg/dL (8.5-10.1) L 08/13/19 04:45 Corrected Calcium 8.5 mg/dL (8.5-10.1) 08/09/19 04:58 Magnesium 1.8 mg/dL (1.7-2.9) 08/13/19 04:45 Total Bilirubin 0.20 mg/dL (0.2-1.0) 08/09/19 04:58 AST 12 Units/L (15-37) L 08/09/19 04:58 ALT 16 Units/L (12-78) 08/09/19 04:58 Alkaline Phosphatase 83 Units/L (46-116) 08/09/19 04:58 C-Reactive Protein 15.10 mg/L (0-3.0) H 08/08/19 19:45 Total Protein 6.3 g/dL (6.4-8.2) L 08/09/19 04:58 Albumin 2.8 g/dL (3.4-5.0) L 08/09/19 04:58 Globulin 3.5 g/dL (2.5-4.5) 08/09/19 04:58 Albumin/Globulin Ratio 0.8 Ratio (1.1-2.1) L 08/09/19 04:58 Specimen Type Clean catch urine 08/08/19 23:51 Urine Color Yellow (YELLOW) 08/08/19 23:51 Urine Appearance Clear (CLEAR) 08/08/19 23:51 Urine pH 7.0 (5.0 - 8.0) 08/08/19 23:51 Ur Specific [place] 1.005 (1.000-1.030) 08/08/19 23:51 Urine Protein 3+ (NEGATIVE) 08/08/19 23:51 Urine Glucose (UA) Negative (NEGATIVE) 08/08/19 23:51 Urine Ketones Negative (NEGATIVE) 08/08/19 23:51 Urine Occult Blood 2+ (NEGATIVE) 08/08/19 23:51 Urine Nitrite Negative (NEGATIVE) 08/08/19 23:51 Urine Bilirubin Negative (NEGATIVE) 08/08/19 23:51 Urine Urobilinogen Normal (NORMAL) 08/08/19 23:51 Ur Leukocyte Esterase 1+ (NEGATIVE) 08/08/19 23:51 Urine RBC 3-5 /HPF (0-3) A 08/08/19 23:51 Urine WBC 0-2 /HPF (0-5) 08/08/19 23:51 Ur Squamous Epith Cells Rare /HPF (NEGATIVE) 08/08/19 23:51 Urine Bacteria Trace /HPF (NEGATIVE) 08/08/19 23:51 Ur Culture Indicated? No/not indicated 08/08/19 23:51 Plan (1) Cellulitis of both lower extremities: Status: Acute Plan: Cultures:Proteus Will DC cefepime and switch to PO Keflex on discharge. Seen by surgery: likely worsening chronic venous stasis, recommend proper wound care/cleaning of the area. Wound care Continue to monitor (2) Hyperglycemia: Status: Acute Plan: elevated BGs, A1C 6.1, lifestyle modifications including dietary changes. (3) Accelerated hypertension: Status: Acute Plan: on lisinopril 5mg and amlodipine 5mg, stable (4) Normocytic anemia: Status: Acute Plan: Hgb: 8.9 No active bleeding. Will continue to monitor (5) Hypokalemia: Status: Acute Plan: Replacement as per protocol. (6) Hypomagnesemia: Status: Acute Plan: replacement as per protocol, check labs in the AM (7) Chronic kidney disease: Status: Acute Plan: Stable, Cr 1.30
[2019-08-13] MEDS ORDERED: KEFLEX CAP 500 MG PO ONE (08:10)
[2019-08-13] MEDS: KEFLEX CAP 500 MG PO SCH ×2 (08:31→21:12)
[2019-08-13] MEDS: ZESTRIL TAB 5 MG PO SCH (08:31)
[2019-08-13] MEDS: NORVASC TAB 5 MG PO SCH (08:31)
[2019-08-13] MEDS: SILVADENE TOP SCH ×2 (08:32→21:14)
[2019-08-13] MEDS: LOVENOX INJ 40 MG SYR SC SCH (08:32)
[2019-08-13] MEDS: RESTORIL CAP 15 MG PO PRN (21:12)
[2019-08-14 05:21] LABS: BASOPHILS # (AUTO) 0.1 X10^3/uL (0.0-0.1); BASOPHILS % (AUTO) 0.8 % (0.2-1.0); EOSINOPHILS # (AUTO) 0.5 x10^3/uL (0.0-0.2); EOSINOPHILS % (AUTO) 6.1 % (0.9-2.9); HEMATOCRIT 24.7 % (36.0-47.0); HEMOGLOBIN 8.4 g/dL (12.0-16.0); LYMPHOCYTES # (AUTO) 0.9 X10^3/uL (1.3-2.9); LYMPHOCYTES % (AUTO) 11.3 % (21.0-51.0); MEAN CORPUSCULAR HEMOGLOBIN 30.9 pg (27.0-34.0); MEAN CORPUSCULAR HGB CONC 34.2 g/dL (33.0-35.0); MEAN CORPUSCULAR VOLUME 90.4 fL (80.0-100.0); MEAN PLATELET VOLUME 7.3 fL (7.4-11.0); MONOCYTES # (AUTO) 0.6 x10^3/uL (0.3-0.8); MONOCYTES % (AUTO) 7.8 % (0.0-13.0); NEUTROPHILS # (AUTO) 5.6 x10^3/uL (2.2-4.8); PLATELET COUNT 280 X10^3/uL (150.0-450.0); RED BLOOD COUNT 2.74 X10^6/uL (3.5-5.4); WHITE BLOOD COUNT 7.6 X10^3/uL (3.6-10.0)
[2019-08-14 05:23] LABS: ALBUMIN 2.3 g/dL (3.4-5.0); CALCIUM 7.9 mg/dL (8.5-10.1); CARBON DIOXIDE 21.8 mmol/L (21-32); COR CA(FOR HYPOALB) 9.3 mg/dL (8.5-10.1); CREATININE 1.29 mg/dL (0.55-1.02); TOTAL PROTEIN 5.7 g/dL (6.4-8.2)
[2019-08-14] MEDS: NORVASC TAB 5 MG PO SCH (08:45)
[2019-08-14] MEDS: KEFLEX CAP 500 MG PO SCH ×2 (08:45→20:26)
[2019-08-14] MEDS: ZESTRIL TAB 5 MG PO SCH (08:45)
[2019-08-14] MEDS: LOVENOX INJ 40 MG SYR SC SCH (08:46)
--- NOTE | 2019-08-14 08:47 | PCM.PROG ---
Progress Note Progress Note for Day of Date of Exam: 08/14/19 Subjective Subjective: Patient seen this AM. No events overnight. Patient is awaiting placement to LTC. Past Medical Family Social History Past Med/Fam/Surg Hx: No changes since H&P Allergies: Allergies No Known Drug Allergies Allergy (Verified 08/08/19 18:30) Review of Systems ROS: No change since H&P Vital Signs and I&O's Vital Signs: Temperature 98.2 F Pulse Rate [Right] 87 Pulse Rate 88 Respiratory Rate 20 Blood Pressure [Left Arm] 146/64 Blood Pressure [Right Arm] 132/61 O2 Sat by Pulse Oximetry 94 Intake and Output: Intake & Output 08/11/19 08/12/19 08/13/19 08/14/19 23:59 23:59 23:59 23:59 Intake Total 4097 / 4097 4410 / 4410 3260 / 3260 250 / 250 Output Total 3150 / 3150 825 / 825 Balance 947 / 947 3585 / 3585 3260 / 3260 250 / 250 Physical Exam Oriented: Normal Eyes: Normal Ear: Normal Nose: Normal Throat: Normal Respiratory: Normal Cardiovascular: Normal Auscultation: Bowel Sounds: Normal Tenderness: Normal Skin: Red (Edema in lower extremities b/l, warm and erythematous, sloughing , chronic venous stasis ) Musculoskeletal: Normal Psychiatric: Normal Mood Description: Calm and Appropriate Affect: Normal Speech Pattern: Clear and Appropriate Laboratory and Diagnostics Result Diagrams: 08/14/19 05:00 08/14/19 05:00 Labs: 08/08/19 20:30 Leg - Left Gram Stain - Final 08/08/19 20:30 Leg - Left Wound Culture - Final Proteus Mirabilis 08/08/19 20:33 Blood Blood Culture - Preliminary 08/08/19 20:16 Blood Blood Culture - Preliminary Laboratory WBC 7.6 X10^3/uL (3.6-10.0) 08/14/19 05:00 RBC 2.74 X10^6/uL (3.5-5.4) L 08/14/19 05:00 Hgb 8.4 g/dL (12.0-16.0) L 08/14/19 05:00 Hct 24.7 % (36.0-47.0) L 08/14/19 05:00 MCV 90.4 fL (80.0-100.0) 08/14/19 05:00 MCH 30.9 pg (27.0-34.0) 08/14/19 05:00 MCHC 34.2 g/dL (33.0-35.0) 08/14/19 05:00 RDW 15.0 % (11.6-16.5) 08/14/19 05:00 Plt Count 280 X10^3/uL (150.0-450.0) 08/14/19 05:00 MPV 7.3 fL (7.4-11.0) L 08/14/19 05:00 Neut % (Auto) 74.0 % (42.0-75.0) 08/14/19 05:00 Lymph % (Auto) 11.3 % (21.0-51.0) L 08/14/19 05:00 [place] % (Auto) 7.8 % (0.0-13.0) 08/14/19 05:00 Eos % (Auto) 6.1 % (0.9-2.9) H 08/14/19 05:00 Baso % (Auto) 0.8 % (0.2-1.0) 08/14/19 05:00 Neut # (Auto) 5.6 x10^3/uL (2.2-4.8) H 08/14/19 05:00 Lymph # (Auto) 0.9 X10^3/uL (1.3-2.9) L 08/14/19 05:00 [place] # (Auto) 0.6 x10^3/uL (0.3-0.8) 08/14/19 05:00 Eos # (Auto) 0.5 x10^3/uL (0.0-0.2) H 08/14/19 05:00 Baso # (Auto) 0.1 X10^3/uL (0.0-0.1) 08/14/19 05:00 Absolute Nucleated RBC 0.1 /100WBC 08/14/19 05:00 Sodium 138 mmol/L (136-145) 08/14/19 05:00 Corrected Sodium 139 mmol/L (136-145) 08/14/19 05:00 Potassium 3.9 mmol/L (3.5-5.1) 08/14/19 05:00 Chloride 108 mmol/L (98-107) H 08/14/19 05:00 Carbon Dioxide 21.8 mmol/L (21-32) 08/14/19 05:00 BUN 15 mg/dL (7-18) 08/14/19 05:00 Creatinine 1.29 mg/dL (0.55-1.02) H 08/14/19 05:00 Est GFR (MDRD) Af Amer 52 (>60) L 08/14/19 05:00 Est GFR (MDRD) Non-Af 43 (>60) L 08/14/19 05:00 Glucose 157 mg/dL (65-99) H 08/14/19 05:00 Hemoglobin A1c 6.2 % 08/12/19 05:17 Lactic Acid 1.6 mmol/L (0.4-2.0) 08/08/19 20:16 Calcium 7.9 mg/dL (8.5-10.1) L 08/14/19 05:00 Corrected Calcium 9.3 mg/dL (8.5-10.1) 08/14/19 05:00 Magnesium 1.8 mg/dL (1.7-2.9) 08/13/19 04:45 Total Bilirubin 0.10 mg/dL (0.2-1.0) L 08/14/19 05:00 AST 14 Units/L (15-37) L 08/14/19 05:00 ALT 19 Units/L (12-78) 08/14/19 05:00 Alkaline Phosphatase 75 Units/L (46-116) 08/14/19 05:00 C-Reactive Protein 15.10 mg/L (0-3.0) H 08/08/19 19:45 Total Protein 5.7 g/dL (6.4-8.2) L 08/14/19 05:00 Albumin 2.3 g/dL (3.4-5.0) L 08/14/19 05:00 Globulin 3.4 g/dL (2.5-4.5) 08/14/19 05:00 Albumin/Globulin Ratio 0.7 Ratio (1.1-2.1) L 08/14/19 05:00 Specimen Type Clean catch urine 08/08/19 23:51 Urine Color Yellow (YELLOW) 08/08/19 23:51 Urine Appearance Clear (CLEAR) 08/08/19 23:51 Urine pH 7.0 (5.0 - 8.0) 08/08/19 23:51 Ur Specific [place] 1.005 (1.000-1.030) 08/08/19 23:51 Urine Protein 3+ (NEGATIVE) 08/08/19 23:51 Urine Glucose (UA) Negative (NEGATIVE) 08/08/19 23:51 Urine Ketones Negative (NEGATIVE) 08/08/19 23:51 Urine Occult Blood 2+ (NEGATIVE) 08/08/19 23:51 Urine Nitrite Negative (NEGATIVE) 08/08/19 23:51 Urine Bilirubin Negative (NEGATIVE) 08/08/19 23:51 Urine Urobilinogen Normal (NORMAL) 08/08/19 23:51 Ur Leukocyte Esterase 1+ (NEGATIVE) 08/08/19 23:51 Urine RBC 3-5 /HPF (0-3) A 08/08/19 23:51 Urine WBC 0-2 /HPF (0-5) 08/08/19 23:51 Ur Squamous Epith Cells Rare /HPF (NEGATIVE) 08/08/19 23:51 Urine Bacteria Trace /HPF (NEGATIVE) 08/08/19 23:51 Ur Culture Indicated? No/not indicated 08/08/19 23:51 Plan (1) Cellulitis of both lower extremities: Status: Acute Plan: Cultures:Proteus Continue PO Keflex Seen by surgery: likely worsening chronic venous stasis, recommend proper wound care/cleaning of the area. Wound care Awaiting placement to LTC (2) Hyperglycemia: Status: Acute Plan: elevated BGs, A1C 6.1, lifestyle modifications including dietary changes. (3) Accelerated hypertension: Status: Acute Plan: on lisinopril 5mg and amlodipine 5mg, stable (4) Normocytic anemia: Status: Acute Plan: Hgb: 8.4 No active bleeding. Outpatient work-up (5) Hypokalemia: Status: Acute Plan: Replacement as per protocol. (6) Hypomagnesemia: Status: Acute Plan: replacement as per protocol, check labs in the AM (7) Chronic kidney disease: Status: Acute Plan: Stable, Cr 1.29
[2019-08-14] MEDS: SILVADENE TOP SCH ×2 (10:28→20:26)
[2019-08-14] MEDS: RESTORIL CAP 15 MG PO PRN (20:26)
[2019-08-15] MEDS ORDERED: TYLENOL 325 MG TAB PO PRN (04:14)
[2019-08-15] MEDS ORDERED: TYLENOL 325 MG TAB PO ONE (04:26)
[2019-08-15 04:45] LABS: BASOPHILS # (AUTO) 0.1 X10^3/uL (0.0-0.1); BASOPHILS % (AUTO) 0.9 % (0.2-1.0); EOSINOPHILS # (AUTO) 0.5 x10^3/uL (0.0-0.2); EOSINOPHILS % (AUTO) 5.9 % (0.9-2.9); HEMATOCRIT 27.3 % (36.0-47.0); HEMOGLOBIN 9.2 g/dL (12.0-16.0); LYMPHOCYTES % (AUTO) 12.5 % (21.0-51.0); MEAN CORPUSCULAR HEMOGLOBIN 30.1 pg (27.0-34.0); MEAN CORPUSCULAR HGB CONC 33.7 g/dL (33.0-35.0); MEAN CORPUSCULAR VOLUME 89.3 fL (80.0-100.0); MEAN PLATELET VOLUME 7.2 fL (7.4-11.0); MONOCYTES # (AUTO) 0.6 x10^3/uL (0.3-0.8); MONOCYTES % (AUTO) 7.8 % (0.0-13.0); NEUTROPHILS # (AUTO) 5.9 x10^3/uL (2.2-4.8); NEUTROPHILS % (AUTO) 72.9 % (42.0-75.0); PLATELET COUNT 344 X10^3/uL (150.0-450.0); RED BLOOD COUNT 3.06 X10^6/uL (3.5-5.4); RED CELL DISTRIBUTION WIDTH 14.9 % (11.6-16.5); WHITE BLOOD COUNT 8.1 X10^3/uL (3.6-10.0)
[2019-08-15 04:59] LABS: ALBUMIN 2.7 g/dL (3.4-5.0); CALCIUM 8.3 mg/dL (8.5-10.1); CARBON DIOXIDE 22.6 mmol/L (21-32); COR CA(FOR HYPOALB) 9.3 mg/dL (8.5-10.1); CREATININE 1.34 mg/dL (0.55-1.02); MAGNESIUM 1.7 mg/dL (1.7-2.9); TOTAL PROTEIN 6.4 g/dL (6.4-8.2)
--- NOTE | 2019-08-15 08:10 | PCM.PROG ---
Progress Note Progress Note for Day of Date of Exam: 08/15/19 Subjective Subjective: No events overnight. Patient is awaiting placement to LTC. Past Medical Family Social History Past Med/Fam/Surg Hx: No changes since H&P Allergies: Allergies No Known Drug Allergies Allergy (Verified 08/08/19 18:30) Review of Systems ROS: No change since H&P Vital Signs and I&O's Vital Signs: Temperature 98.0 F Pulse Rate [Right] 89 Pulse Rate 88 Respiratory Rate 20 Blood Pressure [Left Arm] 146/64 Blood Pressure [Right Arm] 168/58 O2 Sat by Pulse Oximetry 100 Intake and Output: Intake & Output 08/12/19 08/13/19 08/14/19 08/15/19 23:59 23:59 23:59 23:59 Intake Total 4410 / 4410 3260 / 3260 810 / 810 100 / 100 Output Total 825 / 825 Balance 3585 / 3585 3260 / 3260 810 / 810 100 / 100 Physical Exam Oriented: Normal Eyes: Normal Ear: Normal Nose: Normal Throat: Normal Respiratory: Normal Cardiovascular: Normal : Normal Auscultation: Bowel Sounds: Normal Tenderness: Normal Skin: Red (Edema in lower extremities b/l, warm and erythematous, sloughing , chronic venous stasis ) Musculoskeletal: Normal Psychiatric: Normal Mood Description: Calm and Appropriate Affect: Normal Speech Pattern: Clear and Appropriate Laboratory and Diagnostics Result Diagrams: 08/15/19 04:16 08/15/19 04:16 Labs: 08/08/19 20:33 Blood Blood Culture - Final 08/08/19 20:16 Blood Blood Culture - Final 08/08/19 20:30 Leg - Left Gram Stain - Final 08/08/19 20:30 Leg - Left Wound Culture - Final Proteus Mirabilis Laboratory WBC 8.1 X10^3/uL (3.6-10.0) 08/15/19 04:16 RBC 3.06 X10^6/uL (3.5-5.4) L 08/15/19 04:16 Hgb 9.2 g/dL (12.0-16.0) L 08/15/19 04:16 Hct 27.3 % (36.0-47.0) L 08/15/19 04:16 MCV 89.3 fL (80.0-100.0) 08/15/19 04:16 MCH 30.1 pg (27.0-34.0) 08/15/19 04:16 MCHC 33.7 g/dL (33.0-35.0) 08/15/19 04:16 RDW 14.9 % (11.6-16.5) 08/15/19 04:16 Plt Count 344 X10^3/uL (150.0-450.0) 08/15/19 04:16 MPV 7.2 fL (7.4-11.0) L 08/15/19 04:16 Neut % (Auto) 72.9 % (42.0-75.0) 08/15/19 04:16 Lymph % (Auto) 12.5 % (21.0-51.0) L 08/15/19 04:16 [place] % (Auto) 7.8 % (0.0-13.0) 08/15/19 04:16 Eos % (Auto) 5.9 % (0.9-2.9) H 08/15/19 04:16 Baso % (Auto) 0.9 % (0.2-1.0) 08/15/19 04:16 Neut # (Auto) 5.9 x10^3/uL (2.2-4.8) H 08/15/19 04:16 Lymph # (Auto) 1.0 X10^3/uL (1.3-2.9) L 08/15/19 04:16 [place] # (Auto) 0.6 x10^3/uL (0.3-0.8) 08/15/19 04:16 Eos # (Auto) 0.5 x10^3/uL (0.0-0.2) H 08/15/19 04:16 Baso # (Auto) 0.1 X10^3/uL (0.0-0.1) 08/15/19 04:16 Absolute Nucleated RBC 0.0 /100WBC 08/15/19 04:16 Sodium 139 mmol/L (136-145) 08/15/19 04:16 Corrected Sodium 139 mmol/L (136-145) 08/15/19 04:16 Potassium 3.8 mmol/L (3.5-5.1) 08/15/19 04:16 Chloride 107 mmol/L (98-107) 08/15/19 04:16 Carbon Dioxide 22.6 mmol/L (21-32) 08/15/19 04:16 BUN 18 mg/dL (7-18) 08/15/19 04:16 Creatinine 1.34 mg/dL (0.55-1.02) H 08/15/19 04:16 Est GFR (MDRD) Af Amer 50 (>60) L 08/15/19 04:16 Est GFR (MDRD) Non-Af 41 (>60) L 08/15/19 04:16 Glucose 119 mg/dL (65-99) H 08/15/19 04:16 Hemoglobin A1c 6.2 % 08/12/19 05:17 Lactic Acid 1.6 mmol/L (0.4-2.0) 08/08/19 20:16 Calcium 8.3 mg/dL (8.5-10.1) L 08/15/19 04:16 Corrected Calcium 9.3 mg/dL (8.5-10.1) 08/15/19 04:16 Magnesium 1.7 mg/dL (1.7-2.9) 08/15/19 04:16 Total Bilirubin 0.10 mg/dL (0.2-1.0) L 08/15/19 04:16 AST 20 Units/L (15-37) 08/15/19 04:16 ALT 26 Units/L (12-78) 08/15/19 04:16 Alkaline Phosphatase 84 Units/L (46-116) 08/15/19 04:16 C-Reactive Protein 15.10 mg/L (0-3.0) H 08/08/19 19:45 Total Protein 6.4 g/dL (6.4-8.2) 08/15/19 04:16 Albumin 2.7 g/dL (3.4-5.0) L 08/15/19 04:16 Globulin 3.7 g/dL (2.5-4.5) 08/15/19 04:16 Albumin/Globulin Ratio 0.7 Ratio (1.1-2.1) L 08/15/19 04:16 Specimen Type Clean catch urine 08/08/19 23:51 Urine Color Yellow (YELLOW) 08/08/19 23:51 Urine Appearance Clear (CLEAR) 08/08/19 23:51 Urine pH 7.0 (5.0 - 8.0) 08/08/19 23:51 Ur Specific [place] 1.005 (1.000-1.030) 08/08/19 23:51 Urine Protein 3+ (NEGATIVE) 08/08/19 23:51 Urine Glucose (UA) Negative (NEGATIVE) 08/08/19 23:51 Urine Ketones Negative (NEGATIVE) 08/08/19 23:51 Urine Occult Blood 2+ (NEGATIVE) 08/08/19 23:51 Urine Nitrite Negative (NEGATIVE) 08/08/19 23:51 Urine Bilirubin Negative (NEGATIVE) 08/08/19 23:51 Urine Urobilinogen Normal (NORMAL) 08/08/19 23:51 Ur Leukocyte Esterase 1+ (NEGATIVE) 08/08/19 23:51 Urine RBC 3-5 /HPF (0-3) A 08/08/19 23:51 Urine WBC 0-2 /HPF (0-5) 08/08/19 23:51 Ur Squamous Epith Cells Rare /HPF (NEGATIVE) 08/08/19 23:51 Urine Bacteria Trace /HPF (NEGATIVE) 08/08/19 23:51 Ur Culture Indicated? No/not indicated 08/08/19 23:51 Plan (1) Cellulitis of both lower extremities: Status: Acute Plan: Cultures:Proteus Continue PO Keflex Seen by surgery: likely worsening chronic venous stasis, recommend proper wound care/cleaning of the area. Wound care Awaiting placement to LTC (2) Hyperglycemia: Status: Acute Plan: elevated BGs, A1C 6.1, lifestyle modifications including dietary changes. (3) Accelerated hypertension: Status: Acute Plan: on lisinopril 5mg and amlodipine 5mg, stable (4) Normocytic anemia: Status: Acute Plan: Hgb: 9.2 No active bleeding. Outpatient work-up (5) Hypokalemia: Status: Acute Plan: Replacement as per protocol. (6) Hypomagnesemia: Status: Acute Plan: replacement as per protocol, check labs in the AM (7) Chronic kidney disease: Status: Acute Plan: Stable, Cr 1.34
[2019-08-15] MEDS ORDERED: DUONEB 0.5 MG/3 MG NEB ONE (08:15)
[2019-08-15] MEDS: LOVENOX INJ 40 MG SYR SC SCH (09:40)
[2019-08-15] MEDS: ZESTRIL TAB 5 MG PO SCH (09:41)
[2019-08-15] MEDS: KEFLEX CAP 500 MG PO SCH (09:41)
[2019-08-15] MEDS: NORVASC TAB 5 MG PO SCH (09:41)
[2019-08-15] MEDS: SILVADENE TOP SCH (09:41)
[2019-08-15 12:03] VITALS: BP 143/65
--- NOTE | 2019-08-18 08:44 | W.DIS.FURT ---
Summary of Discharge Discharge Summary of Date Date of Exam: 08/18/19 Admission Date Date of Admission: 08/09/19 Admission Diagnosis Hospital Course: Ms. Caruso is a 74y/o female with a PMH of chronic venous stasis in both lower extremities presented with worsening erythema, warmth and tenderness of both legs. She also had drainage in both legs. Blood cultures and wound cultures were obtained. She was started on Vancomycin and Cefepime for broad MRSA and Pseudomonal coverage. Her erythema did not decrease significantly but she continued to have pain. Surgery was consulted and recommended proper wound care as it's likely due to chronic stasis ulcers. Wound culture grew Proteus and she was transitoned to PO antibiotics. Physical therapy had recommended rehab, patient's family wanted patient to go to a long-term facility but was awaiting placement. Patient was stable and discharged home with family on PO Keflex. She will follow up with PCP and surgery for further care. She also had normocytic anemia with Hgb between 8-9, needs further outpatient workup. She was also started on lisinopril and amlodipine for hypertension. Vital Signs: Vital Signs (72 hours) 08/15/19 12:00 Temperature 98.1 F Pulse Rate [Right] 80 Respiratory Rate 18 Blood Pressure [Right Arm] 143/65 O2 Sat by Pulse Oximetry 97 Labs: Laboratory Last Values WBC 8.1 X10^3/uL (3.6-10.0) 08/15/19 04:16 RBC 3.06 X10^6/uL (3.5-5.4) L 08/15/19 04:16 Hgb 9.2 g/dL (12.0-16.0) L 08/15/19 04:16 Hct 27.3 % (36.0-47.0) L 08/15/19 04:16 MCV 89.3 fL (80.0-100.0) 08/15/19 04:16 MCH 30.1 pg (27.0-34.0) 08/15/19 04:16 MCHC 33.7 g/dL (33.0-35.0) 08/15/19 04:16 RDW 14.9 % (11.6-16.5) 08/15/19 04:16 Plt Count 344 X10^3/uL (150.0-450.0) 08/15/19 04:16 MPV 7.2 fL (7.4-11.0) L 08/15/19 04:16 Neut % (Auto) 72.9 % (42.0-75.0) 08/15/19 04:16 Lymph % (Auto) 12.5 % (21.0-51.0) L 08/15/19 04:16 [place] % (Auto) 7.8 % (0.0-13.0) 08/15/19 04:16 Eos % (Auto) 5.9 % (0.9-2.9) H 08/15/19 04:16 Baso % (Auto) 0.9 % (0.2-1.0) 08/15/19 04:16 Neut # (Auto) 5.9 x10^3/uL (2.2-4.8) H 08/15/19 04:16 Lymph # (Auto) 1.0 X10^3/uL (1.3-2.9) L 08/15/19 04:16 [place] # (Auto) 0.6 x10^3/uL (0.3-0.8) 08/15/19 04:16 Eos # (Auto) 0.5 x10^3/uL (0.0-0.2) H 08/15/19 04:16 Baso # (Auto) 0.1 X10^3/uL (0.0-0.1) 08/15/19 04:16 Absolute Nucleated RBC 0.0 /100WBC 08/15/19 04:16 Sodium 139 mmol/L (136-145) 08/15/19 04:16 Corrected Sodium 139 mmol/L (136-145) 08/15/19 04:16 Potassium 3.8 mmol/L (3.5-5.1) 08/15/19 04:16 Chloride 107 mmol/L (98-107) 08/15/19 04:16 Carbon Dioxide 22.6 mmol/L (21-32) 08/15/19 04:16 BUN 18 mg/dL (7-18) 08/15/19 04:16 Creatinine 1.34 mg/dL (0.55-1.02) H 08/15/19 04:16 Est GFR (MDRD) Af Amer 50 (>60) L 08/15/19 04:16 Est GFR (MDRD) Non-Af 41 (>60) L 08/15/19 04:16 Glucose 119 mg/dL (65-99) H 08/15/19 04:16 Hemoglobin A1c 6.2 % 08/12/19 05:17 Lactic Acid 1.6 mmol/L (0.4-2.0) 08/08/19 20:16 Calcium 8.3 mg/dL (8.5-10.1) L 08/15/19 04:16 Corrected Calcium 9.3 mg/dL (8.5-10.1) 08/15/19 04:16 Magnesium 1.7 mg/dL (1.7-2.9) 08/15/19 04:16 Total Bilirubin 0.10 mg/dL (0.2-1.0) L 08/15/19 04:16 AST 20 Units/L (15-37) 08/15/19 04:16 ALT 26 Units/L (12-78) 08/15/19 04:16 Alkaline Phosphatase 84 Units/L (46-116) 08/15/19 04:16 C-Reactive Protein 15.10 mg/L (0-3.0) H 08/08/19 19:45 Total Protein 6.4 g/dL (6.4-8.2) 08/15/19 04:16 Albumin 2.7 g/dL (3.4-5.0) L 08/15/19 04:16 Globulin 3.7 g/dL (2.5-4.5) 08/15/19 04:16 Albumin/Globulin Ratio 0.7 Ratio (1.1-2.1) L 08/15/19 04:16 Specimen Type Clean catch urine 08/08/19 23:51 Urine Color Yellow (YELLOW) 08/08/19 23:51 Urine Appearance Clear (CLEAR) 08/08/19 23:51 Urine pH 7.0 (5.0 - 8.0) 08/08/19 23:51 Ur Specific [place] 1.005 (1.000-1.030) 08/08/19 23:51 Urine Protein 3+ (NEGATIVE) 08/08/19 23:51 Urine Glucose (UA) Negative (NEGATIVE) 08/08/19 23:51 Urine Ketones Negative (NEGATIVE) 08/08/19 23:51 Urine Occult Blood 2+ (NEGATIVE) 08/08/19 23:51 Urine Nitrite Negative (NEGATIVE) 08/08/19 23:51 Urine Bilirubin Negative (NEGATIVE) 08/08/19 23:51 Urine Urobilinogen Normal (NORMAL) 08/08/19 23:51 Ur Leukocyte Esterase 1+ (NEGATIVE) 08/08/19 23:51 Urine RBC 3-5 /HPF (0-3) A 08/08/19 23:51 Urine WBC 0-2 /HPF (0-5) 08/08/19 23:51 Ur Squamous Epith Cells Rare /HPF (NEGATIVE) 08/08/19 23:51 Urine Bacteria Trace /HPF (NEGATIVE) 08/08/19 23:51 Ur Culture Indicated? No/not indicated 08/08/19 23:51 Reason For Visit: CELLULITIS LOWER EXTREMITY Discharge Date Discharge Date: 08/15/19 Discharge Diagnosis All Active Problems (Updated 08/12/19 @ 08:19 by Bill Clark) Accelerated hypertension (Acute) Hyperglycemia (Acute) Hypomagnesemia (Acute) Chronic kidney disease (Acute) Hypokalemia (Acute) Normocytic anemia (Acute) Cellulitis of both lower extremities (Acute) Plan of Treatment: Continue with present treatment and follow up plan. Pt is to keep follow up appointment as instructed and take medications as ordered. Discharge Medications Discharge Medications: No Known Drug Allergies Allergy (Verified 08/08/19 18:30) CONTINUE taking the following medications aspirin [Aspirin Low Dose] 81 mg PO DAILY 08/09/19 [History] ibuprofen 400 mg PO BID 08/09/19 [History] New Prescriptions amlodipine 5 mg PO DAILY 30 Days #30 tab 08/13/19 [Rx] cephalexin 500 mg PO BID 7 Days #14 cap 08/13/19 [Rx] lisinopril 5 mg PO DAILY 30 Days #30 tab NS 08/13/19 [Rx] silver sulfadiazine [Silvadene] 1 applic TOP BID 14 Days #50 g 08/13/19 [Rx] Follow up and Referral Follow Up: 1 Week Discharge Disposition Discharge Disposition: home
== END 2019-08-15 15:20 | disposition home health service (06) | DRG 603 ==
LOC: ER 18:27 → MED/SURG 23:06
PROVIDERS: ADMIT Family Medicine; ATTEND Family Medicine
DX: L03.115 Cellulitis of right lower limb; I12.9 Hypertensive chronic kidney disease with stage 1 through stage 4 chronic kidney disease, or unspecified chronic kidney disease; L97.919 Non-pressure chronic ulcer of unspecified part of right lower leg with unspecified severity; R60.0 Localized edema; R73.9 Hyperglycemia, unspecified; B95.61 Methicillin susceptible Staphylococcus aureus infection as the cause of diseases classified elsewhere; R26.89 Other abnormalities of gait and mobility; L97.929 Non-pressure chronic ulcer of unspecified part of left lower leg with unspecified severity; E87.6 Hypokalemia; E83.42 Hypomagnesemia; D64.9 Anemia, unspecified; B96.4 Proteus (mirabilis) (morganii) as the cause of diseases classified elsewhere; N18.9 Chronic kidney disease, unspecified; L03.116 Cellulitis of left lower limb; I83.209 Varicose veins of unspecified lower extremity with both ulcer of unspecified site and inflammation
CPT/HCPCS: 36415; 80048; 80053; 81001; 83036; 83605; 83735; 84132; 85025; 86140; 87040; 87070; 87075; 87077; 87186; 87205; 93970; 94640; 96365; 96367; 96374; 97110; 97112; 97116; 97162; 97166; 97530; 97535; 99284; A4222; J0692; J1650; J2270; J3370; J3475; J7030; J7050; J7060; J7620; S0119; S0181